=== PATIENT | male | born 1995 ===

== ENCOUNTER 2018-10-14 10:54 | Emergency (ER) | payer OTHER ==
[~2018-10-14] VITALS: Ht 182.9 cm; Wt 113.4 kg
--- OUTSIDE RECORDS SUMMARY | 2018-10-14 10:58 | XMS REPORT | Continuity of Care Document ---
Author Organization Unknown Address Unknown Allergies There is no data. Medications There is no data. Problems Date Dx Coded Attending Type Code Diagnosis Diagnosed By 03/18/2016 Harjinder Islas, Corby Pfeiffer S01.511A LACERATION WITHOUT FOREIGN BODY OF LIP, INITIAL EN 03/18/2016 Harjinder Islas, Corby Pfeiffer W01.0XXA FALL SAME LEV FROM SLIP/TRIP W/O STRIKE AGAINST OB 03/18/2016 Harjinder Islas, Corby Pfeiffer Y92.[address] [facility] 03/18/2016 Corby Grande M.D. Y93.01 ACTIVITY, WALKING, MARCHING AND HIKING 03/18/2016 Corby Grande M.D. Z72.0 TOBACCO USE Procedures Code Description Performed By Performed On [id number] REPAIR UPPER LIP, EXTERNAL APPROACH 03/18/2016 Results There is no data. Encounters ACCT No. Visit Date/Time Discharge Status Pt. Type Provider Facility Loc./Unit Complaint [id number] 03/18/2016 06:32:00 03/18/2016 08:18:00 DIS Emergency Corby Grande M.D. [facility] D.ER
[2018-10-14] MEDS ORDERED: LIDOCAINE 1% INJ 20 ML 20 ML VIAL ONE (10:59)
[2018-10-14] MEDS ORDERED: ceFAZolin INJECTION 1,000 MG VIAL IM ONE (11:00)
[2018-10-14] MEDS ORDERED: LIDOCAINE 1% INJ 20 ML 20 ML VIAL INJ ONE (11:00)
--- NOTE | 2018-10-14 11:30 | ED Upper Extremity ---
General Chief Complaint: Laceration Stated Complaint: HAND LACERATION Nursing Triage Note: was using a knife when he cut his R hand, digits 2-5 Nursing Sepsis Screen: No Definite Risk Source: patient Exam Limitations: no limitations History of Present Illness Date Seen by Provider: Oct 14, 2018 Time Seen by Provider: 11:30 Initial Comments To ER per EMS with reports of a laceration to the palmar surface of the right third fourth and fifth digits he was using a paring knife at the time. His tetanus vaccination is up-to-date. He is unable to flex the third fourth and fifth finger has reduced sensation to these fingers as well. 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 Onset: just prior to arrival Severity: moderate Pain/Injury Location: right 2nd finger Modifying Factors: Worse With Movement Allergies and Home Medications Allergies Coded Allergies: No Known Drug Allergies (Unverified , 10/14/18) Home Medications Cephalexin 500 Mg Capsule, 500 MG PO TID Prescribed by: KARON SALGADO on 10/14/18 1142 Hydrocodone Bit/Acetaminophen 1 Tab Tab, 1 EACH PO Q4-6HR PRN for PAIN-MODERATE Prescribed by: KARON SALGADO on 10/14/18 1142 Patient Home Medication List Home Medication List Reviewed: Yes Review of Systems Constitutional: see HPI EENTM: see HPI Respiratory: no symptoms reported Cardiovascular: no symptoms reported Genitourinary: no symptoms reported Musculoskeletal: see HPI Skin: no symptoms reported Psychiatric/Neurological: No Symptoms Reported Past Ivvkoxu-Hphkid-Onxptm Hx Patient Social History Alcohol Use: Occasionally Uses Recreational Drug Use: No Smoking Status: Current Everyday Smoker Type Used: Cigarettes Recent Foreign Travel: No Contact w/Someone Who Travel: No Recent Infectious Disease Expo: No Recent Hopitalizations: No Immunizations Up To Date Tetanus Booster (TDap): Less than 5yrs Seasonal Allergies Seasonal Allergies: Yes Past Medical History Surgeries: Yes (wisdom teeth) Respiratory: No Cardiac: No Neurological: No Genitourinary: No Gastrointestinal: No Musculoskeletal: No Endocrine: No HEENT: No Cancer: No Psychosocial: No Blood Disorders: No Physical Exam Vital Signs Vital Signs - First Documented 10/14/18 11:00 Temp 97.2 Pulse 117 Resp 16 B/P (MAP) 115/79 (91) Capillary Refill : NONE Height, Weight, BMI Height: 6'0" Weight: 250lbs. oz. 113.196370td; BMI Method:Stated General Appearance: WD/WN, no apparent distress HEENT: PERRL/EOMI, normal ENT inspection Shoulder: normal inspection, non-tender Elbow/Forearm: normal inspection, non-tender Wrist: Yes normal inspection, Yes non-tender Hand: Right, laceration (he is right-hand dominant. There is a 1.5 cm laceration to the proximal phalanx palmar surface right fifth finger down to the bone. This has lacerated the flexor tendon. He has sensation of the fingertip but it's reduced stating it feels as though it's asleep. Similar 1.5 semi-laceration to the MCP joint palmar surface ring finger right hand also unable to flex that finger and a similar one again to the middle finger MCP joint still unable to flex that finger. He has more sensation of the middle finger, the ring and little finger have the least sensation) Neurologic/Tendon: motor deficit, sensory deficit, tendon function deficit Skin: normal color, warm/dry Procedures/Interventions Wound Location: Upper Extremities Wound Length (cm): 4.5 Wound's Depth, Shape: linear Wound Explored: clean Irrigated w/ Saline (ccs): 250 Anesthesia: 1% Lidocaine Volume Anesthetic (ccs): 5 Suture: Prolene Suture Size: 5-0 Number of Sutures: 18 Layer Closure?: 1 Number Deep Layer Sutures: 0 Progress Area of the laceration was anesthetized with lidocaine without epinephrine. Wound was then scrubbed with chlorhexidine/saline to each finger, each finger was then irrigated with saline solution. After discussion with Dr. Oconnor contour sander for orthopedics, wound was closed primarily, bandaged and he'll need a volar splint and to follow-up with orthopedics for flexor tendon repair. Progress/Results/Core Measures Results/Orders My Orders Orders - KARON SALGADO APRN Lidocaine 1% Inj 20 Ml (Xylocaine 1% Inj (10/14/18 11:00) Cefazolin Injection (Ancef Injection) (10/14/18 11:00) Lidocaine 1% Inj 20 Ml (Xylocaine 1% Inj (10/14/18 10:59) Water (Sterile) For Injection (Sterile W (10/14/18 11:39) Medications Given in ED Current Medications Medications Dose Ordered Sig/Anh Route Start Time Stop Time Status Last Admin Dose Admin Cefazolin Sodium 1,000 mg ONCE ONCE IM 10/14/18 11:00 10/14/18 11:01 DC 10/14/18 11:47 1,000 MG Lidocaine HCl 20 ml ONCE ONCE INJ 10/14/18 11:00 10/14/18 11:01 DC 10/14/18 11:07 20 ML Vital Signs/I&O 10/14/18 11:00 Temp 97.2 Pulse 117 Resp 16 B/P (MAP) 115/79 (91) Blood Pressure Mean: 91 Departure Communication (Admissions) SPoke with Dr oconnor recommends primary closure, follow up with Dr. Zepeda. I called Dr Wood Mota credit officer who has made an appointment for the patient tomorrow at 10:30 but should arrive at 10 AM. Impression Primary Impression: Finger laceration involving tendon Qualified Codes: S61.219A - Laceration without foreign body of unspecified finger without damage to nail, initial encounter Disposition: HOME, SELF-CARE Condition: Stable Departure-Patient Inst. Decision time for Depature: 11:40 Referrals: TAE OCONNOR MD, MARK E DO OGDEN, JOHN T MD ZAFUTA,KRISTY Subramanian MD Patient Instructions: Laceration Repair With Stitches (DC), Tendon Laceration ( DC) Add. Discharge Instructions: 1. Return to ER for any concerns. Change the dressing daily. Pain medication and antibiotics as directed. 2. Follow-up next week with one of the physicians listed. Stitches should remain in place for about 10 days. 3. All discharge instructions reviewed with patient and/or family. Voiced understanding. Scripts Cephalexin (Keflex) 500 Mg Capsule 500 MG PO TID, #15 CAP Prov: KARON SALGADO LINOTYPIST 10/14/18 Hydrocodone Bit/Acetaminophen (Hydrocodone/Acetaminophen 5/325mg Tablet) 1 Tab Tab 1 EACH PO Q4-6HR PRN for PAIN-MODERATE MDD 10 for 3 Days, #14 TAB Prov: KARON SALGADO LINOTYPIST 10/14/18 Work/School Note: Work Release Form Date Seen in the Emergency Department: Oct 14, 2018 Return to Work: October 15, 2018 Other Restrictions Listed Below: No use of right hand until released Copy Copies To 1: SINTIA ZEPEDA PETER J LINOTYPIST Oct 14, 2018 11:30
[2018-10-14] MEDS ORDERED: WATER (STERILE) FOR INJECTION 10 ML ONE (11:39)
[2018-10-14] MEDS ORDERED: ACHD5005 PO (11:42)
[2018-10-14] MEDS ORDERED: CEPH-507 PO (11:42)
[2018-10-14 12:06] VITALS: BP 123/74
== END 2018-10-14 12:06 | disposition home or self-care (01) ==
LOC: ER 10:55
DX: S61.210A Laceration without foreign body of right index finger without damage to nail, initial encounter (principal); F17.210 Nicotine dependence, cigarettes, uncomplicated; W26.0XXA Contact with knife, initial encounter
CPT/HCPCS: 12042; 96372